=== PATIENT | female | born 1955 | race African-American/Black ===

== ENCOUNTER 2021-07-07 21:05 | Emergency (ER) | payer BC ==
[2021-07-08] MEDS ORDERED: Ibuprofen 200 MG TAB ONE (00:23)
[2021-07-08] MEDS ORDERED: Acetaminophen 500 MG TAB ONE (00:23)
== END 2021-07-08 02:06 | disposition home or self-care (01) ==
LOC: CSHERS 21:05
DX: S13.4XXA Sprain of ligaments of cervical spine, initial encounter (principal); R51.9 Headache, unspecified; E78.5 Hyperlipidemia, unspecified; I10 Essential (primary) hypertension; K21.9 Gastro-esophageal reflux disease without esophagitis; Z79.899 Other long term (current) drug therapy; V43.52XA Car driver injured in collision with other type car in traffic accident, initial encounter; Y92.410 Unspecified street and highway as the place of occurrence of the external cause
CPT/HCPCS: 70450; 72100; 72125

== ENCOUNTER 2021-09-11 11:55 | Outpatient (CLI) | payer BC, MEDICARE | END 2021-09-11 11:56 | disposition home or self-care (01) | LOC: CSHMAMMO 11:55 | PROVIDERS: ATTEND Family Medicine | DX: Z12.31 Encounter for screening mammogram for malignant neoplasm of breast (principal) | CPT/HCPCS: 77063; 77067 ==